=== PATIENT | female | born 1940 | race Caucasian/White ===

== ENCOUNTER 2016-09-26 18:50 | Emergency (ER) | payer OTHER, BC ==
[~2016-09-26] VITALS: Ht 157.5 cm; Wt 149.5 kg
[2016-09-26 19:29] VITALS: BP 145/88
== END 2016-09-26 19:30 | disposition home or self-care (01) ==
LOC: EME 18:50
DX: Z48.03 Encounter for change or removal of drains (principal); E89.0 Postprocedural hypothyroidism; I10 Essential (primary) hypertension; K21.9 Gastro-esophageal reflux disease without esophagitis; F32.9 Major depressive disorder, single episode, unspecified; Z87.891 Personal history of nicotine dependence; Z88.0 Allergy status to penicillin
CPT/HCPCS: 99281; 99284

== ENCOUNTER → 2016-12-29 | Outpatient (CLI) | payer OTHER, BC | END | disposition home or self-care (01) | LOC: RAD 12-28 11:00 | DX: J84.10 Pulmonary fibrosis, unspecified (principal); Z98.890 Other specified postprocedural states; R06.00 Dyspnea, unspecified | CPT/HCPCS: 71250 ==

== ENCOUNTER 2017-02-24 08:24 | Day surgery (SDC) | payer OTHER, BC ==
[~2017-02-24] VITALS: Ht 157.5 cm; Wt 147.0 kg
[~2017-02-24 08:24] MED LIST: ADVAIR 250/501 DISK IH; ANTI-DIARRHEA2 MG PO; ASPIRIN325 MG PO; BALANCE B-1001 EAC1 PO; BENADRYL25 MG PO; BIOTIN 5000MCG PO; CALCITRIOL0.25 MCG PO; CALCIUM 600 +1 EAC6 PO; CARDIZEM LA360 MG PO; CINNAMON500 MG PO; DAYTIME COLD-F118 ML PO; FUROSEMIDE20 MG PO; GARLIC500 MG PO; HYDROCODON-ACE1 EA12 PO; ISOSORBIDE DINIT5 MG PO; LANSOPRAZOLE30 MG PO; LEVOTHYROXINE137 MCG PO; MULTIVITAMIN1 EAC2 PO; NASONEX17 GM BOTH NARES; NATURE'S TEARS15 M1 BOTH EYES; PENTASA500 MG PO; PROAIR HFA8.5 GM IH; SINGULAIR10 MG PO; TYLENOL WITH C1 EACH PO; VALSARTAN-HCTZ1 EAC4 PO; VESICARE5 MG PO; VITAMIN D31000 UNIT PO; VITAMIN E400 UNIT PO; Z-TUSS AC LIQU473 ML PO
== END 2017-02-24 16:05 | disposition home or self-care (01) ==
LOC: CATH 08:24
DX: R06.02 Shortness of breath (principal); I34.0 Nonrheumatic mitral (valve) insufficiency; E66.01 Morbid (severe) obesity due to excess calories; I11.0 Hypertensive heart disease with heart failure; I50.9 Heart failure, unspecified; Z82.49 Family history of ischemic heart disease and other diseases of the circulatory system; Z68.44 Body mass index [BMI] 60.0-69.9, adult; J44.9 Chronic obstructive pulmonary disease, unspecified; K21.9 Gastro-esophageal reflux disease without esophagitis; Z96.653 Presence of artificial knee joint, bilateral; G47.33 Obstructive sleep apnea (adult) (pediatric); E11.9 Type 2 diabetes mellitus without complications; E78.2 Mixed hyperlipidemia; Z87.891 Personal history of nicotine dependence; Z82.3 Family history of stroke; Z79.82 Long term (current) use of aspirin
CPT/HCPCS: C1769; C1887; J1644; J2250; J3010